=== PATIENT | female | born 1940 | race Caucasian/White ===

== ENCOUNTER → 2019-07-26 09:52 | Outpatient (BNVA) | payer MEDICARE, MEDICAID, SELFPAY | PROVIDERS: Family Provider Nurse Practitioner; PCP Nurse Practitioner; Visit Provider Nurse Practitioner | DX: E55.9 Vitamin D deficiency, unspecified (principal); I10 Essential (primary) hypertension | CPT/HCPCS: 80048; 82306 ==

== ENCOUNTER → 2019-12-02 08:39 | Outpatient (BNVA) | payer MEDICARE, MEDICAID, SELFPAY | PROVIDERS: Family Provider Nurse Practitioner; PCP Nurse Practitioner; Visit Provider Nurse Practitioner | DX: I10 Essential (primary) hypertension (principal); E55.9 Vitamin D deficiency, unspecified | CPT/HCPCS: 80053; 80061; 84443 ==

== ENCOUNTER → 2020-01-24 09:08 | Outpatient (BNVA) | payer MEDICARE, MEDICAID, SELFPAY | PROVIDERS: Family Provider Nurse Practitioner; PCP Nurse Practitioner; Visit Provider Nurse Practitioner Family | DX: R05 Cough (principal) | CPT/HCPCS: 87635 ==

== ENCOUNTER → 2020-03-21 10:36 | Outpatient (BNVA) | payer MEDICARE, MEDICAID, SELFPAY | PROVIDERS: Family Provider Nurse Practitioner; PCP Nurse Practitioner; Visit Provider Nurse Practitioner | DX: E55.9 Vitamin D deficiency, unspecified (principal); I10 Essential (primary) hypertension | CPT/HCPCS: 80053; 80061; 82306; 84443 ==

== ENCOUNTER → 2020-07-31 09:35 | Outpatient (BNVA) | payer MEDICARE, MEDICAID, SELFPAY | PROVIDERS: Family Provider Nurse Practitioner; PCP Nurse Practitioner; Visit Provider Nurse Practitioner Family | DX: J02.9 Acute pharyngitis, unspecified (principal); J06.9 Acute upper respiratory infection, unspecified; J30.89 Other allergic rhinitis | CPT/HCPCS: 87071; 87880 ==

== ENCOUNTER → 2020-12-06 08:08 | Outpatient (BNVA) | payer MEDICARE, MEDICAID, SELFPAY | PROVIDERS: Family Provider Nurse Practitioner; PCP Nurse Practitioner; Visit Provider Nurse Practitioner | DX: I10 Essential (primary) hypertension (principal) | CPT/HCPCS: 80053; 80061 ==

== ENCOUNTER 2021-01-11 08:56 | Outpatient (CLI) | payer MEDICARE, MEDICAID, SELFPAY ==
--- NOTE | 2021-01-11 09:07 | MM_ITS ---
WS: [id number] BILATERAL DIGITAL SCREENING MAMMOGRAPHY WITH CAD CLINICAL INFORMATION: SCREENING HISTORY: Screening mammogram. No current complaints. COMPARISON: TECHNIQUE: Bilateral CC and MLO views. FINDINGS: Scattered fibroglandular densities bilaterally. Vascular calcification. Punctate and lucent centered calcifications. No suspicious focal mass, asymmetry, calcifications, or architectural distortion. No evidence of malignancy. MM/[place] [id number] IMPRESSION: BI-RADS: 2-Benign FOLLOW UP: 1 Year Follow-up Recommend return to annual screening mammography.
== END 2021-01-11 08:57 | disposition home or self-care (01) ==
LOC: RADSHAW 09:03
PROVIDERS: Family Provider Nurse Practitioner; PCP Nurse Practitioner; Visit Provider Nurse Practitioner
DX: Z12.31 Encounter for screening mammogram for malignant neoplasm of breast (principal)
CPT/HCPCS: 77067

== ENCOUNTER → 2021-06-05 08:09 | Outpatient (BNVA) | payer MEDICARE, MEDICAID, SELFPAY | PROVIDERS: Family Provider Nurse Practitioner; PCP Nurse Practitioner; Visit Provider Nurse Practitioner | DX: I10 Essential (primary) hypertension (principal); E55.9 Vitamin D deficiency, unspecified | CPT/HCPCS: 80053; 80061; 82306; 84443 ==

== ENCOUNTER → 2021-11-29 11:06 | Outpatient (BNVA) | payer MEDICARE, MEDICAID, SELFPAY | PROVIDERS: Family Provider Nurse Practitioner; PCP Nurse Practitioner; Visit Provider Nurse Practitioner | DX: E55.9 Vitamin D deficiency, unspecified (principal); I10 Essential (primary) hypertension | CPT/HCPCS: 80053; 80061; 82306; 85025 ==

== ENCOUNTER 2021-12-25 09:52 | Outpatient (CLI) | payer MEDICARE, MEDICAID, SELFPAY ==
--- NOTE | 2021-12-25 10:24 | MM_ITS ---
WS: [id number] DIAGNOSTIC BILATERAL DIGITAL BREAST TOMOSYNTHESIS MAMMOGRAPHY WITH CAD LEFT breast ultrasound, limited HISTORY: lt breast tenderness COMPARISON: 01/11/2021, 05/01/2015 TECHNIQUE: Bilateral craniocaudad, mediolateral oblique, and mediolateral views are submitted with to mosava and SM. Computer aided detection utilized. Breast composition: There are scattered areas of fibroglandular density. Markers are placed in the upper outer quadrant of the LEFT breast at the area of pain. No underlying abnormality is identified. There are benign breast arterial calcifications. LEFT breast ultrasound, limited. Ultrasound directed to the upper-outer quadrant of the LEFT breast in area of pain. No abnormality is noted within the LEFT breast in the area of pain. MM/[place] [id number] IMPRESSION: BI-RADS: 2-Benign FOLLOW UP: 1 Year Follow-up
--- NOTE | 2021-12-25 11:04 | US_ITS ---
WS: [id number] DIAGNOSTIC BILATERAL DIGITAL BREAST TOMOSYNTHESIS MAMMOGRAPHY WITH CAD LEFT breast ultrasound, limited HISTORY: lt breast tenderness COMPARISON: 01/11/2021, 05/01/2015 TECHNIQUE: Bilateral craniocaudad, mediolateral oblique, and mediolateral views are submitted with to mosava and SM. Computer aided detection utilized. Breast composition: There are scattered areas of fibroglandular density. Markers are placed in the upper outer quadrant of the LEFT breast at the area of pain. No underlying abnormality is identified. There are benign breast arterial calcifications. LEFT breast ultrasound, limited. Ultrasound directed to the upper-outer quadrant of the LEFT breast in area of pain. No abnormality is noted within the LEFT breast in the area of pain. US/US breast LT limited* [id number] IMPRESSION: BI-RADS: 2-Benign FOLLOW UP: 1 Year Follow-up
== END 2021-12-25 09:53 | disposition home or self-care (01) ==
LOC: RAD 09:56
PROVIDERS: Family Provider Nurse Practitioner; PCP Nurse Practitioner; Visit Provider Nurse Practitioner
DX: N64.4 Mastodynia (principal); R92.1 Mammographic calcification found on diagnostic imaging of breast
CPT/HCPCS: 76642; 77062

== ENCOUNTER → 2022-04-23 09:51 | Outpatient (BNVA) | payer MEDICARE, MEDICAID, SELFPAY | PROVIDERS: Family Provider Nurse Practitioner; PCP Nurse Practitioner; Visit Provider Nurse Practitioner | DX: E55.9 Vitamin D deficiency, unspecified (principal); I10 Essential (primary) hypertension | CPT/HCPCS: 80053; 80061; 82306; 85025 ==

== ENCOUNTER → 2022-05-13 09:03 | Outpatient (BNVA) | payer MEDICARE, MEDICAID, SELFPAY | PROVIDERS: Family Provider Nurse Practitioner; PCP Nurse Practitioner; Visit Provider Nurse Practitioner | DX: R07.0 Pain in throat (principal); R05.9 Cough, unspecified | CPT/HCPCS: 87071; 87486; 87581; 87633; 87880 ==

== ENCOUNTER → 2022-06-04 09:22 | Outpatient (BNVA) | payer MEDICARE, MEDICAID, SELFPAY | PROVIDERS: Family Provider Nurse Practitioner; PCP Nurse Practitioner; Visit Provider Nurse Practitioner | DX: R05.9 Cough, unspecified (principal); J32.9 Chronic sinusitis, unspecified; R09.81 Nasal congestion | CPT/HCPCS: 85025; 87400; 87426 ==

== ENCOUNTER → 2022-10-23 08:27 | Outpatient (BNVA) | payer MEDICARE, MEDICAID, SELFPAY | PROVIDERS: Family Provider Nurse Practitioner; PCP Nurse Practitioner; Visit Provider Nurse Practitioner | DX: I10 Essential (primary) hypertension (principal) | CPT/HCPCS: 80053; 80061; 82607; 83735; 84443 ==

== ENCOUNTER → 2022-12-24 08:27 | Outpatient (BNVA) | payer MEDICARE, MEDICAID, SELFPAY | PROVIDERS: Family Provider Nurse Practitioner; PCP Nurse Practitioner; Visit Provider Nurse Practitioner | DX: I10 Essential (primary) hypertension (principal); E55.9 Vitamin D deficiency, unspecified; K21.9 Gastro-esophageal reflux disease without esophagitis; J30.1 Allergic rhinitis due to pollen; J32.9 Chronic sinusitis, unspecified; F41.9 Anxiety disorder, unspecified; M79.7 Fibromyalgia | CPT/HCPCS: 80053; 80061; 82306; 82607; 85025 ==

== ENCOUNTER 2023-02-21 12:09 | Outpatient (CLI) | payer MEDICARE, MEDICAID, SELFPAY ==
--- NOTE | 2023-02-21 12:38 | MM_ITS ---
WS: [id number] Bilateral screening 3D tomosynthesis digital mammogram, 02/21/2023 Clinical Data: SCREENING Comparison: 12/25/2021, 01/11/2021, 03/05/2017, 04/30/2015, 04/29/2014, 02/11/2014, 04/12/2013, 03/25/2012, 1 08/21/2010, 03/13/2010, 03/09/2009, 03/03/2008, 11/20/2006. Findings: The breast parenchymal pattern shows fibroglandular tissue. No spiculated masses or clustered calcifi cations are seen. There are no secondary signs of carcinoma. Impression: 1. Negative bilateral mammogram unchanged. 2. Recommend annual screening mammograms. MM/[place] [id number] BIRADS: 1-Negative FOLLOW UP: 1 Year Follow-up The CAD calibration checker was used.
== END 2023-02-21 12:10 | disposition home or self-care (01) ==
LOC: RAD 12:16 → MOBLMAM 12:37
PROVIDERS: PCP Nurse Practitioner; Visit Provider Nurse Practitioner
DX: Z12.31 Encounter for screening mammogram for malignant neoplasm of breast (principal)
CPT/HCPCS: 77063; 77067

== ENCOUNTER → 2023-02-28 13:53 | Outpatient (BNVA) | payer MEDICARE, MEDICAID, SELFPAY | PROVIDERS: PCP Nurse Practitioner; Visit Provider Nurse Practitioner Family | DX: R05.9 Cough, unspecified (principal) | CPT/HCPCS: 87426 ==

== ENCOUNTER → 2023-03-17 08:48 | Outpatient (BNVA) | payer MEDICARE, MEDICAID, SELFPAY | PROVIDERS: PCP Nurse Practitioner; Visit Provider Nurse Practitioner | DX: R05.9 Cough, unspecified (principal); I10 Essential (primary) hypertension; Z20.822 Contact with and (suspected) exposure to COVID-19 | CPT/HCPCS: 80053; 83880; 85025; 87426 ==

== ENCOUNTER → 2023-08-12 08:44 | Outpatient (BNVA) | payer MEDICARE, MEDICAID, SELFPAY | PROVIDERS: PCP Nurse Practitioner; Visit Provider Nurse Practitioner | DX: I10 Essential (primary) hypertension (principal) | CPT/HCPCS: 80053; 80061; 84443 ==

== ENCOUNTER → 2023-09-10 13:29 | Outpatient (BNVA) | payer MEDICARE, MEDICAID, SELFPAY | PROVIDERS: PCP Nurse Practitioner; Visit Provider Nurse Practitioner | DX: I10 Essential (primary) hypertension (principal); R05.9 Cough, unspecified | CPT/HCPCS: 71046; 80053; 85025 ==

== ENCOUNTER 2023-09-15 08:35 | Outpatient (CLI) | payer MEDICARE, MEDICAID, SELFPAY ==
--- NOTE | 2023-09-15 09:00 | US_ITS ---
WS: [id number] Complete ABDOMINAL ULTRASOUND HISTORY: R10.819 - Abdominal tenderness, unspecified site COMPARISON: 12/08/2014 Liver: 17.2 cm in length. Top normal size liver. No mass or bile duct dilatation. Portal Vein: Normal hepatopetal flow with monophasic waveform. Gallbladder: Status post cholecystectomy. CBD: 0.6 cm Pancreas: Obscured Right kidney: 10.0 cm x 4.6 x 3.8 cm. Cortex:1.2 cm. Normal size and echogenicity. No hydronephrosis or mass. Left kidney: 10.2 cm x 3.6 cm x 4.9 cm. Cortex: 1.7 cm. Normal size and echogenicity. No hydronephrosis or mass. Spleen: 10.0 cm. Normal size and echogenicity. Aorta and IVC: Unremarkable abdominal aorta and IVC. Impression: 1. Prior cholecystectomy. 2. No renal obstruction. 3. No bile duct obstruction.
== END 2023-09-15 08:36 | disposition home or self-care (01) ==
LOC: RAD 08:35
PROVIDERS: PCP Nurse Practitioner; Visit Provider Nurse Practitioner Family
DX: R10.819 Abdominal tenderness, unspecified site (principal); Z90.49 Acquired absence of other specified parts of digestive tract
CPT/HCPCS: 76700

== ENCOUNTER 2023-09-26 09:45 | Outpatient (CLI) | payer MEDICARE, MEDICAID, SELFPAY ==
--- NOTE | 2023-09-26 11:00 | USCV_ITS ---
Kinza Edwards Age: 83 Gender: F : 1940 Exam Date: 09/26/2023 10:42 Ordering Phys: Sabra Benavidez Technologist: Spencer Mendoza Exam Location: [facility] [place] Indication: essential hypertension BP: 130 / 75 HR: 67 Rhythm: Sinus Technical Quality: Adequate MEASUREMENTS (Male / Female) Normal Values 2D ECHO LVOT Diameter 2.0 cm LV Ejection Fraction MOD 2C 60.1 % LV Ejection Fraction 2C AL 60.8 % LA Diameter 3.6 cm RA Systolic Volume 4C AL 49.5 ml RA Systolic Volume 4C MOD 46.1 ml Aorta at Sinotubular Diameter 2.6 cm IVC Diameter 1.5 cm M-MODE LA Ao Ratio MM 1.5 AV Cusp Separation MM 1.7 cm DOPPLER AV Peak Velocity 143.0 cm/s LVOT Peak Velocity 87.0 cm/s AV Area Cont Eq vti 1.9 cm squared AV Area Cont Eq pk 1.9 cm squared MV Peak Velocity 107.0 cm/s MV Area PHT 5.2 cm squared Mitral E to A Ratio 0.9 TV Peak Velocity 323.7 cm/s TR Peak Velocity 343.0 cm/s TR Peak Gradient 47.1 mmHg TR Mean Velocity 238.0 cm/s TR Mean Gradient 25.9 mmHg TR Velocity Time Integral 106.0 cm PV Peak Velocity 116.7 cm/s RV Ejection Time 0.3 s FINDINGS Left Ventricle Left ventricle is normal in size. LV systolic function was normal with EF of 55-60%. No regional wall motion abnormalities seen. Grade 1 diastolic dysfunction. Right Ventricle Normal in size and function Right Atrium Normal in size Left Atrium Normal in size Mitral Valve Structurally normal mitral valve. Mild mitral regurgitation. Aortic Valve Structurally normal aortic valve. No significant stenosis or regurgitation. Tricuspid Valve Mild tricuspid regurgitation. RVSP is 45 to 50 mmHg. This is consistent with moderate pulmonary hypertension. Pulmonic Valve Trace pulmonic regurgitation. Pericardium Normal Aorta Mildly dilated ascending aorta with diameter of 3.53cm IVC Appears to be normal. CONCLUSIONS LV systolic function is normal with EF of 55 to 60%. Grade 1 diastolic dysfunction Mild mitral regurgitation Mild tricuspid regurgitation Moderate pulmonary hypertension Trace pulmonic regurgitation. Mild dilated ascending aorta with diameter of 3.53cm No comparison studies are available. Mac Benedict MD (Electronically Signed) Final Date: 05 October 2023 12:29 S
== END 2023-09-26 09:46 | disposition home or self-care (01) ==
LOC: RAD 09:48
PROVIDERS: PCP Nurse Practitioner; Visit Provider Nurse Practitioner
DX: I10 Essential (primary) hypertension (principal); R06.00 Dyspnea, unspecified; I27.20 Pulmonary hypertension, unspecified
CPT/HCPCS: 93306

== ENCOUNTER → 2024-01-05 07:55 | Outpatient (BNVA) | payer MEDICARE, MEDICAID, SELFPAY | PROVIDERS: PCP Nurse Practitioner; Visit Provider Nurse Practitioner | DX: F41.9 Anxiety disorder, unspecified (principal); F32.9 Major depressive disorder, single episode, unspecified; I10 Essential (primary) hypertension; I51.9 Heart disease, unspecified | CPT/HCPCS: 80053; 80061; 84443; 85025 ==

== ENCOUNTER → 2024-01-19 08:47 | Outpatient (BNVA) | payer MEDICARE, MEDICAID, SELFPAY | PROVIDERS: PCP Nurse Practitioner; Visit Provider Nurse Practitioner | DX: M25.561 Pain in right knee (principal) | CPT/HCPCS: 73562 ==

== ENCOUNTER 2024-01-28 06:00 | Outpatient (RCR) | payer MEDICARE, MEDICAID, SELFPAY | END 2024-02-04 23:59 | disposition home or self-care (01) | LOC: APT 06:00 | PROVIDERS: Visit Provider Nurse Practitioner | DX: M25.561 Pain in right knee (principal) | CPT/HCPCS: 97110; 97140; 97163 ==

== ENCOUNTER 2024-02-05 06:00 | Outpatient (RCR) | payer MEDICARE, SELFPAY | END 2024-03-06 23:59 | disposition home or self-care (01) | LOC: APT 06:00 | PROVIDERS: Visit Provider Nurse Practitioner | DX: M25.561 Pain in right knee (principal) | CPT/HCPCS: 97110; 97140; 97530 ==

== ENCOUNTER 2024-03-16 10:31 | Outpatient (CLI) | payer MEDICARE, MEDICAID, SELFPAY ==
--- NOTE | 2024-03-16 10:40 | MM_ITS ---
WS: [id number] BILATERAL 3D TOMOSYNTHESIS DIGITAL SCREENING MAMMOGRAPHY WITH CAD CLINICAL INFORMATION: SCREENING HISTORY: Screening mammogram. No current complaints. COMPARISON: 2022 TECHNIQUE: Bilateral CC and MLO views. FINDINGS: Scattered fibroglandular densities bilaterally. No suspicious focal mass, asymmetry, calcifications, or architectural distortion. No evidence of malignancy. Vascular calcification. MM/[place] [id number] IMPRESSION: DENSITY: There are scattered areas of fibroglandular density. BI-RADS: 2 - Benign. FOLLOW UP: 1 Year Follow-up Recommend return to annual screening mammography.
== END 2024-03-16 10:32 | disposition home or self-care (01) ==
LOC: MOBLMAM 10:34
PROVIDERS: PCP Nurse Practitioner; Visit Provider Nurse Practitioner
DX: Z12.31 Encounter for screening mammogram for malignant neoplasm of breast (principal); R92.323 Mammographic fibroglandular density, bilateral breasts; R92.1 Mammographic calcification found on diagnostic imaging of breast
CPT/HCPCS: 77063; 77067

== ENCOUNTER → 2024-03-19 09:22 | Outpatient (BNVA) | payer MEDICARE, SELFPAY | PROVIDERS: PCP Nurse Practitioner; Visit Provider Nurse Practitioner Family | DX: R05.9 Cough, unspecified (principal) | CPT/HCPCS: 87400; 87426 ==

== ENCOUNTER → 2024-03-23 11:28 | Outpatient (BNVA) | payer MEDICARE, SELFPAY | PROVIDERS: PCP Nurse Practitioner; Visit Provider Nurse Practitioner | DX: I10 Essential (primary) hypertension (principal) | CPT/HCPCS: 80048; 85025 ==

== ENCOUNTER → 2024-05-31 12:01 | Outpatient (BNVA) | payer MEDICARE, SELFPAY | PROVIDERS: PCP Nurse Practitioner; Visit Provider Clinical Nurse Specialist Adult Health | DX: I51.9 Heart disease, unspecified (principal) | CPT/HCPCS: 83880; 85025; 86140 ==

== ENCOUNTER 2024-06-18 10:38 | Outpatient (CLI) | payer MEDICARE, MEDICAID, SELFPAY ==
--- NOTE | 2024-06-18 11:15 | USCV_ITS ---
Kinza Edwards Age: 84 Gender: F : 1940 Exam Date: 06/18/2024 11:33 Ordering Phys: Sabra Benavidez Technologist: Spencer Mendoza [place] [facility] [place]: hypertension BP: 125 / 60 HR: 70 Rhythm: Sinus Technical Quality: Adequate MEASUREMENTS (Male / Female) Normal Values 2D ECHO LV Diastolic Diameter PLAX 3.8 cm 4.2 - 5.9 / 3.9 - 5.3 cm IVS Diastolic Thickness 1.2 cm 0.6 - 1.0 / 0.6 - 0.9 cm IVS Systolic Thickness 1.8 cm LVPW Diastolic Thickness 2.4 cm 0.6 - 1.0 / 0.6 - 0.9 cm LVPW Systolic Thickness 2.9 cm LVOT Diameter 2.0 cm LV Ejection Fraction 2D Teich 63.5 % LV Ejection Fraction MOD 4C 60.3 % LV Ejection Fraction MOD 2C 64.9 % LV Ejection Fraction 2C AL 66.5 % LA Diameter 3.5 cm RA Systolic Volume 4C AL 31.5 ml RA Systolic Volume 4C MOD 30.5 ml LA Sys Volume AL 44.2 cm cubed LA Sys Volume Index AL 20.9 cm cubed/m squared Aorta at Sinotubular Diameter 2.8 cm IVC Diameter 1.3 cm M-MODE LA Ao Ratio MM 1.3 AV Cusp Separation MM 1.5 cm DOPPLER AV Peak Velocity 145.0 cm/s LVOT Peak Velocity 99.0 cm/s AV Area Cont Eq vti 2.6 cm squared AV Area Cont Eq pk 2.2 cm squared MV Peak Velocity 100.0 cm/s MV Area PHT 4.1 cm squared Mitral E to A Ratio 0.6 TV Peak Velocity 357.0 cm/s TR Peak Velocity 392.0 cm/s TR Peak Gradient 61.5 mmHg TR Mean Velocity 295.0 cm/s TR Mean Gradient 37.2 mmHg TR Velocity Time Integral 120.0 cm PV Peak Velocity 116.7 cm/s RV Ejection Time 0.3 s FINDINGS Left Ventricle Normal left ventricular size and systolic function, EF 62%. No regional wall motion abnormalities. Mild left ventricular hypertrophy. Grade I/IV diastolic dysfunction (abnormal relaxation filling pattern), normal to mildly elevated filling pressures. Right Ventricle The right ventricle is normal in size and function. Right Atrium The right atrium is normal in size. Left Atrium Mildly increased left atrial size. Mitral Valve Trace mitral valve regurgitation. Aortic Valve Thickened aortic valve. Tricuspid Valve Mild tricuspid valve regurgitation. Estimated pulmonary artery peak systolic pressure 44 mmHg Pulmonic Valve Pulmonic valve not well visualized. Pericardium Normal pericardium without effusion. Aorta Normal ascending aorta dimension. IVC Normal inferior vena cava. CONCLUSIONS Normal left ventricular size and systolic function, EF 62%. No regional wall motion abnormalities. Mild left ventricular hypertrophy. Grade I/IV diastolic dysfunction (abnormal relaxation filling pattern), normal to mildly elevated filling pressures. Trace mitral valve regurgitation. Mildly increased left atrial size. Thickened aortic valve. Mild tricuspid valve regurgitation. Estimated pulmonary artery peak systolic pressure 44 mmHg. There is no pericardial effusion. There are no intracardiac masses. Compared to the study from 09/24/2023, there may not be a significant change Dr Oneida Lopez MD [facility] (Electronically Signed) Final Date: 18 June 2024 18:53 S
== END 2024-06-18 10:39 | disposition home or self-care (01) ==
LOC: RAD 10:41
PROVIDERS: PCP Nurse Practitioner; Visit Provider Nurse Practitioner
DX: I10 Essential (primary) hypertension (principal); I51.9 Heart disease, unspecified; I51.7 Cardiomegaly; I35.8 Other nonrheumatic aortic valve disorders; I07.1 Rheumatic tricuspid insufficiency
CPT/HCPCS: 93306

== ENCOUNTER → 2024-09-13 08:28 | Outpatient (BNVA) | payer MEDICARE, MEDICAID, SELFPAY | PROVIDERS: PCP Nurse Practitioner; Visit Provider Nurse Practitioner | DX: I10 Essential (primary) hypertension (principal) | CPT/HCPCS: 80053; 80061 ==

== ENCOUNTER → 2024-11-15 13:25 | Outpatient (BNVA) | payer MEDICARE, MEDICAID, SELFPAY | PROVIDERS: PCP Nurse Practitioner; Visit Provider Internal Medicine | DX: I11.9 Hypertensive heart disease without heart failure (principal); R07.9 Chest pain, unspecified; Z87.891 Personal history of nicotine dependence | CPT/HCPCS: 93005; 99204 ==

== ENCOUNTER 2024-11-30 10:18 | Outpatient (CLI) | payer MEDICARE, MEDICAID, SELFPAY ==
--- NOTE | 2024-11-30 10:45 | ECG_ITS ---
[place] [facility] Date: 2024-11-30 Pat Name: Kinza Edwards Department: Room: Gender: Female [employer]: : 1940 Requested By: Mac Benedict Order Number: [id number] Reading MD: JAVIER BOONE Interpretive Statements Lung unchanged pre/post procedure; Intraprocedure shortess of breath and nausea Symptoms resolved after the administration of zofran NOTE: Please note that this is the electrocardiogram portion of the Lexiscan/Sestamibi stress test. The perfusion scan will be documented separately. DATA: Baseline heart rate was 76 beats per minute. Baseline blood pressure was 151/80 millimeters of mercury. Target heart rate was 136. Maximum heart rate achieved was 102. which was 75 % of the predicted target heart rate. Maximum blood pressure was 151/80 millimeters of mercury. The reason for ending the test was completion of the protocol. The patient did not experience any symptoms. ELECTROCARDIOGRAM: BASELINE: Sinus rhythm. Normal axis. Otherwise, no ST-T changes suggestive of ischemia noted. No arrhythmia noted. EXERCISE: After Lexiscan injection, no ST-T changes suggestive of ischemic noted. No arrhythmia noted. CONCLUSION: Please note due to baseline abnormality of the EKG specificity and sensitivity of the EKG portion of LexiScan MIBI stress test will be low 1. EKG not suggestive of ischemia 2. Lexiscan injection unremarkable. 3. Perfusion scan will be documented separately. Electronically Signed On 12-11-2024 23:43:54 CDT by JAVIER BOONE [email or web address]
[2024-11-30 10:46] VITALS: BMI 37.3
--- NOTE | 2024-11-30 10:46 | NMCV_ITS ---
NM chyna perf SPECT r/s* [id number] Kinza Edwards Age: 84 Gender: F : 1940 Exam Date: 11/30/2024 11:23 Ordering Phys: Mac Benedict M.D ([email or web address]) Technologist: TIFFANY Pisano Exam Location: [facility] Indications: cp STRESS TEST [facility] IMAGE PROTOCOL Rest/Stress 1 Lexiscan Day Radiopharmaceutical Dose (mCi) Administration Site Administered by Rest: Tc-99m 11 IV TIFFANY Pisano Sestamibi Stress:Tc-99m 32.6 IV TIFFANY Pisano Sestamibi Rest: 30-Nov-2024 60 Discovery 630 Stress: 30-Nov-2024 30 Discovery 630 0.4mg Lexiscan. Supine position only as patient was unable to lay prone. SPECT RESULTS Technical Quality: Good Raw Data Analysis: Normal Image Corrections: No attenuation or motion correction applied Summed Stress Score: 5 Summed Rest Score: 13 Summed Difference Score: 1 PERFUSION FINDINGS Medium to large sized partially reversible perfusion defects in the inferolateral wall. 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 FUNCTIONAL RESULTS (calculated via Gated SPECT) Stress Image LV EF (%): 90 Stress EDV (mL):59 TID: 0.74 Stress ESV (mL):6 FUNCTIONAL FINDINGS: There is normal left ventricular systolic function. IMPRESSIONS 1. 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 2. LV systolic function is normal Mac Benedict MD (Electronically Signed) Final Date: 09 December 2024 09:38 S
[2024-11-30] MEDS: regadenoson 0.4 Mg/5 ml Syringe IVP (12:00)
[2024-11-30] MEDS: ondansetron 2 mg/ML SDV 2 mL 4 MG IVP (12:08)
[2024-11-30 12:40] VITALS: BP 133/74; PULSE 96
== END 2024-11-30 10:19 | disposition home or self-care (01) ==
PROVIDERS: PCP Nurse Practitioner; Visit Provider Internal Medicine
DX: R07.9 Chest pain, unspecified (principal); R06.02 Shortness of breath; R93.1 Abnormal findings on diagnostic imaging of heart and coronary circulation
CPT/HCPCS: 36415; 78452; 93017; 96374; 96375; A9500; J2405; J2785

== ENCOUNTER → 2025-01-03 14:03 | Outpatient (BNVA) | payer MEDICARE, MEDICAID, SELFPAY | PROVIDERS: PCP Nurse Practitioner; Visit Provider Nurse Practitioner | DX: J02.9 Acute pharyngitis, unspecified (principal) | CPT/HCPCS: 87426 ==

== ENCOUNTER → 2025-02-14 14:39 | Outpatient (BNVA) | payer MEDICARE, MEDICAID, SELFPAY | PROVIDERS: PCP Nurse Practitioner; Visit Provider Internal Medicine | DX: R07.89 Other chest pain (principal); R06.09 Other forms of dyspnea; I10 Essential (primary) hypertension; I51.89 Other ill-defined heart diseases | CPT/HCPCS: 99214 ==

== ENCOUNTER → 2025-02-15 15:24 | Outpatient (BNVA) | payer MEDICARE, MEDICAID, SELFPAY | PROVIDERS: PCP Nurse Practitioner; Visit Provider Nurse Practitioner | DX: J40 Bronchitis, not specified as acute or chronic (principal); J98.11 Atelectasis | CPT/HCPCS: 71046 ==

== ENCOUNTER → 2025-02-28 09:41 | Outpatient (BNVA) | payer MEDICARE, MEDICAID, SELFPAY | PROVIDERS: PCP Nurse Practitioner; Visit Provider Nurse Practitioner | DX: I10 Essential (primary) hypertension (principal); E55.9 Vitamin D deficiency, unspecified | CPT/HCPCS: 80053; 82306; 84443; 85025 ==

== ENCOUNTER → 2025-03-01 09:40 | Outpatient (BNVA) | payer MEDICARE, MEDICAID, SELFPAY | PROVIDERS: PCP Nurse Practitioner; Visit Provider Nurse Practitioner | DX: J18.9 Pneumonia, unspecified organism (principal) | CPT/HCPCS: 71046 ==

== ENCOUNTER 2025-05-17 10:52 | Outpatient (CLI) | payer MEDICARE, MEDICAID, SELFPAY ==
--- NOTE | 2025-05-17 11:20 | MM_ITS ---
WS: [id number] BILATERAL 3D TOMOSYNTHESIS DIGITAL SCREENING MAMMOGRAPHY WITH CAD CLINICAL INFORMATION: SCREENING HISTORY: Screening mammogram. No current complaints. COMPARISON: 2023 TECHNIQUE: Bilateral CC and MLO views. FINDINGS: Scattered fibroglandular densities bilaterally. No suspicious focal mass, asymmetry, calcifications, or architectural distortion. No evidence of malignancy. Vascular calcification. MM/MM scr tomosynthesis [id number] IMPRESSION: DENSITY: There are scattered areas of fibroglandular density. BI-RADS: 2 - Benign. FOLLOW UP: 1 Year Follow-up Recommend return to annual screening mammography.
== END 2025-05-17 10:53 | disposition home or self-care (01) ==
LOC: MOBLMAM 10:55
PROVIDERS: PCP Nurse Practitioner; Visit Provider Nurse Practitioner
DX: Z12.31 Encounter for screening mammogram for malignant neoplasm of breast (principal); R92.323 Mammographic fibroglandular density, bilateral breasts; R92.1 Mammographic calcification found on diagnostic imaging of breast
CPT/HCPCS: 77063; 77067